=== PATIENT | male | born 1990 | race Native Hawaiian/Other Pacific Islander ===

== ENCOUNTER 2017-04-02 23:55 | Emergency (ER) | payer SELFPAY ==
[~2017-04-02] VITALS: Ht 167.6 cm; Wt 86.4 kg
[2017-04-03 00:07] VITALS: BP 130/74; PULSE 94; RESP 20; O2SAT 96
--- NOTE | 2017-04-03 01:39 | ED.REPORT ---
HPI-Extremity Problem Lower Date of Service Apr 03, 2017 ED Provider: Bandar Delgado MD Nursing Notes Stated Complaint: RIGHT FOOT SWELLING Chief Complaint: General Complaint Nursing Notes Reviewed: Yes Allergies: Coded Allergies: No Known Allergies (Verified Allergy, Unknown, 04/03/17) General Time Seen by MD: 01:31 Physical Exam Initial Vital Signs Vital Signs (First) Date Time Temp Pulse Resp B/P Pulse Ox O2 Delivery O2 Flow Rate FiO2 04/03/17 00:07 37. 94 20 130/74 96 Room Air Discharge & Departure Referrals: NOPCP (PCP) Bandar Delgado MD Apr 03, 2017 01:39 PAZ BROWN Apr 03, 2017 01:48
--- NOTE | 2017-04-03 01:46 | ED.REPORT ---
HPI-Extremity Problem Lower Date of Service Apr 03, 2017 ED Provider: Dr. Clark Pt is a healthy 26 year old male presenting to the ED complaining of pain and swelling to his right foot and leg onset yesterday gradually worsening. Associated symptoms include numbness in his foot. He denies any injury, fever or chills. Denies any previous similar symptoms. The pain is exacerbated by walking. Nursing Notes Stated Complaint: RIGHT FOOT SWELLING Chief Complaint: General Complaint Nursing Notes Reviewed: Yes Allergies: Coded Allergies: No Known Allergies (Verified Allergy, Unknown, 04/03/17) General Time Seen by MD: 01:44 Chief Complaint Foot injury right Hx Obtained From: Patient Arrived By: Walk-in Onset Occurred: Yesterday Symptom Duration: Since onset Quality: Painful Severity: Current: Moderate Severity: Maximum: Severe Recent Healthcare: No recent doctor visit, No recent hospitalization Similar Sx Previous: No Past Medical History Past Medical History healthy Past Surgical History denies Smoking History Unknown if Ever Smoker Ambulatory Status Independent Review of Systems Constitutional: Denies: Chills, Fever Musculoskeletal: Reports: Extremity pain, Extremity swelling, Joint pain, Joint swelling Neurologic: Reports: Numbness Complete sys rev & neg: except as marked. Physical Exam Initial Vital Signs Vital Signs (First) Date Time Temp Pulse Resp B/P Pulse Ox O2 Delivery O2 Flow Rate FiO2 04/03/17 00:07 37. 94 20 130/74 96 Room Air Initial VS: Reviewed General/Constitutional: Well-developed, Well-nourished Head / Eyes: Atraumatic, Normocephalic, PERRL ENT: Mucous membranes moist, Conjunctiva normal, No scleral icterus Neck: Supple, Non-tender, Full range of motion Respiratory: Breath sounds normal, Clear to auscultation, No respiratory distress Cardiovascular: Regular rate & rhythm, Heart sounds normal, Intact distal pulses Abdomen / GI: Soft, Non-tender, No guarding, No rebound, No distention Upper Extremities: Vascular intact, Neuro intact, No swelling, No tenderness Skin: Warm, Dry, No cyanosis Neurologic: Alert, Oriented, Nonfocal Psychiatric: Mood/affect normal, Behavior normal, Normal thought content Ankle / Foot: No deformity, Neurologic intact, Vascular intact Tenderness over 2nd and 3rd metatarsal heads on right foot. Skin is very warm. Some significant swelling. No open wounds. Interpretation & Diagnostics X-Ray Interpretation Xray Interpretation: Normal. X-Ray Ordered: Foot right Interpretation / Wet Read by: Wet read ED physician Re-Eval/Medical Decision Med Decision/Clinical Course Pt presenting with pain, swelling and warmth over the 2nd and 3rd metatarsal heads. Questionable erythema. Pain improved with toradol. xray shows no bony abnormalities. Treat presumptively for cellulitis and set up a f/u appointment with podiatry if not improving. Pt understands and agrees with plan Re-Evaluation/Progress : Time of Eval: 02:50 Patient Status: Condition improved Re-Evaluation/Progress Note: Discussed x ray results and plan for discharge. Pt understands and agrees. Counseled Regarding: Diagnosis, Lab results, Need for follow-up, When/why to return to ED Discharge & Departure Impression: Primary Impression: Cellulitis Site of cellulitis: extremity Site of cellulitis of extremity: lower extremity Laterality: right Qualified Code: L03.115 - Cellulitis of right lower limb Additional Impression: Right foot pain Ruled Out: Foot fracture, right Disposition: Home Discharge Condition All VS Reviewed: Yes Condition: Improved Additional Instructions: Thank you for trusting us with your care today. There was no sign of a fracture on your x ray. I suspect you have an infection in your foot. Take the antibiotic as prescribed and you can take 4 Ibuprofen (800 mg) three times a day as needed for pain. Return to the ER if you develop any new or worsening symptoms. If your symptoms are not improving by next week, follow-up with the heating element repairer listed below Referrals: Brad Puga DPM Attestation Portions of this note were transcribed by [employer]. I, Dr. Clark personally performed the history, physical exam and medical decision-making; I reviewed and confirmed the accuracy of the information in the transcribed note. Signed by: William Adan, 04/03/2017. copies to: Brad Puga DPM, Gary R DO Apr 03, 2017 01:46 [employer] Apr 03, 2017 01:50
[2017-04-03 03:17] VITALS: BP 95/55; PULSE 88; O2SAT 96
--- NOTE | 2017-04-03 08:35 | DRSVH ---
PROCEDURE: X-RAY RIGHT FOOT COMPLETE, MINIMUM THREE VIEWS ([id number]) INDICATIONS: IDIOPATHIC PAIN AND SWELLING OVER 2ND AND 3RD METATARSA HEADS TECHNIQUE: 3 views of the foot were acquired. COMPARISON: None. FINDINGS: Bones: No fractures or dislocations. No suspicious bony lesions. Soft tissues: No tibiotalar joint effusion. Achilles tendon appears normal. IMPRESSION: No definite radiographic abnormality. Dictated by: Charlie Palumbo RR Interpreted: Gelacio Pelaez MD on 04/03/2017 at 8:33 Transcribed by: LISANDRA on 04/03/2017 at 8:34 Approved by: Gelacio Pelaez M.D. on 04/03/2017 at 8:58
== END 2017-04-03 03:19 | disposition home or self-care (01) ==
LOC: SED 23:55
DX: L03.115 Cellulitis of right lower limb (principal); M79.671 Pain in right foot
CPT/HCPCS: 73630; 96372; 99284; J1885